=== PATIENT | female | born 1960 | race Two or more races ===

== ENCOUNTER 2021-05-25 17:28 | Inpatient (IN) | payer MEDICARE, OTHER ==
[~2021-05-25] VITALS: Ht 152.4 cm; Wt 71.7 kg
[2021-05-25 17:46] LABS: HEMATOCRIT 36.9 % (31.2-41.9); MEAN CORPUSCULAR HEMOGLOBIN 28.5 uug (24.7-32.8); MEAN CORPUSCULAR VOLUME 87.1 fL (75.5-95.3); PLATELET COUNT (AUTO) 222 K/uL (179-408)
[2021-05-25] MEDS ORDERED: MULT-594 PO (17:55)
[2021-05-25] MEDS ORDERED: NA P133E RC (17:55)
[2021-05-25] MEDS ORDERED: OXYC10TA49 PO (17:55)
[2021-05-25] MEDS ORDERED: FAMO20TA8 PO (17:55)
[2021-05-25] MEDS ORDERED: HYDR25TA4 PO (17:55)
[2021-05-25] MEDS ORDERED: DOCU250C14 PO (17:55)
[2021-05-25] MEDS ORDERED: METF-440 PO (17:55)
[2021-05-25] MEDS ORDERED: GABA-532 PO (17:55)
[2021-05-25] MEDS ORDERED: MAG355OR18 PO (17:55)
[2021-05-25] MEDS ORDERED: ATOR20TA PO (17:55)
[2021-05-25] MEDS ORDERED: BISA10SU61 RC (17:55)
[2021-05-25] MEDS ORDERED: QUET400T PO (17:55)
[2021-05-25] MEDS ORDERED: ACET-2154 PO ×2 (17:55)
[2021-05-25] MEDS ORDERED: MAGN400O6 PO (17:55)
[2021-05-25] MEDS ORDERED: OXYB5TAB16 PO (17:55)
[2021-05-25] MEDS ORDERED: POTA10CA43 PO (17:55)
[2021-05-25] MEDS ORDERED: LORA10TA7 PO (17:55)
[2021-05-25] MEDS ORDERED: QUET25TA PO (17:55)
[2021-05-25 17:56] LABS: CARBON DIOXIDE 25 mmol/L (21-32); CHLORIDE 98 mmol/L (98-107); CREATININE 0.6 mg/dL (0.6-1.3); GLUCOSE 105 mg/dL (74-106); POTASSIUM 3.3 mmol/L (3.5-5.1); UREA NITROGEN, BLOOD 10 mg/dL (7-18)
[2021-05-25 18:01] LABS: ETHANOL < 3 MG/DL (0-0)
--- NOTE | 2021-05-25 18:04 | NUR ---
Pt walked to the bathroom w/ steady gait. Urine collected and taken to LAB. Dinner tray provided.
[2021-05-25 18:09] LABS: ALANINE AMINOTRANSFERASE 29 U/L (14-59); ALKALINE PHOSPHATASE < 10 U/L (50-136); ASPARTATE AMINOTRANSFERASE 29 U/L (15-37); BILIRUBIN,DIRECT 0.1 mg/dL (0.0-0.2); BILIRUBIN,TOTAL 0.4 mg/dL (0.2-1.0); TOTAL PROTEIN, SERUM 6.8 g/dL (6.4-8.2)
[2021-05-25 18:09] LABS: *BILIRUBIN,URIN NEGATIVE (NEGATIVE); *CLARITY,URINE CLEAR (CLEAR); *COLOR,URINE LIGHT YELLOW (YELLOW); *KETONES,URINE 1+ (NEGATIVE); *UROBILINOGEN,URINE 0.2 E.U./dl (NORMAL); LEUKOCYTE ESTERASE ,URINE 2+ (NEGATIVE); NITRITE, URINE NEGATIVE (NEGATIVE); UGLUCOSE NEGATIVE (NEGATIVE)
[2021-05-25 18:12] LABS: *BLOOD, URINE TRACE INTACT (NEGATIVE)
[2021-05-25 18:14] LABS: ACETAMINOPHEN < 2.0 ug/mL (10-30)
[2021-05-25 18:16] LABS: *AMPHETAMINE, URINE NEGATIVE (NEGATIVE); *CANNABINOID, URINE NEGATIVE (NEGATIVE); *COCCAINE, URINE NEGATIVE (NEGATIVE); *OPIATE, URINE NEGATIVE (NEGATIVE); *PHENCYCLIDINE SCREEN,URINE NEGATIVE (NEGATIVE)
--- NOTE | 2021-05-25 18:16 | NUR ---
PT DAUGHTER, BONNY MUNOZ, CALLED AND REQUESTED TO BE ON CONTACT LIST: [phone] Addendum: 05/25/21 at 1820 by CESAR PT AGREED THE DAUGHTER TO BE ON THE CONTACT LIST.
--- NOTE | 2021-05-25 18:36 | NUR ---
Pt is medically cleared by Dr Liu.
--- NOTE | 2021-05-25 18:38 | NUR ---
Left message WINSOME, Neda Mijares, [employer] FACER. Awaiting call back.
--- NOTE | 2021-05-25 18:52 | NUR ---
Spoke to PET optometric technician, BALTA Red 1 hour.
--- NOTE | 2021-05-25 19:14 | NUR ---
Report recieved from ANITA Fairchild.
[2021-05-25] MEDS ORDERED: POTASSIUM CHLORIDE 20 MEQ TAB.PRT.SR PO ONE (19:30)
[2021-05-25] MEDS ORDERED: NITROFURANTOIN/NITROFURAN MAC 100 MG CAPSULE PO ONE ×2 (19:30→19:32)
[2021-05-25] MEDS ORDERED: POTASSIUM CHLORIDE 20 MEQ TAB.PRT.SR ONE (19:32)
--- NOTE | 2021-05-25 20:19 | NUR ---
Neda is at bedside to evaluate the pt.
--- NOTE | 2021-05-25 21:45 | NUR ---
Pt resting in bed, no changes in condition. Will continue to monitor.
[2021-05-25 22:47] LABS: BACTERIA,URINE FEW /HPF (NONE SEEN); RBC,URINE 0-3 /HPF (0-3); SQUAMOUS EPITHELIAL CELL,UR FEW /HPF (NONE SEEN)
--- NOTE | 2021-05-25 23:29 | NUR ---
Gave report to ANITA Lozoya.
[2021-05-25 23:35] VITALS: BP 116/79
[2021-05-26] MEDS ORDERED: BLOOD SUGAR DIAGNOSTIC 1 EACH STRIP VI ONE (00:15)
[2021-05-26] MEDS ORDERED: MAG HYDROX/AL HYDROX/SIMETH 30 ML LIQUID UDC PO PRN ×2 (00:15→16:15)
[2021-05-26] MEDS ORDERED: LORAZEPAM 1 MG TABLET PO PRN (00:15)
[2021-05-26] MEDS ORDERED: MAGNESIUM HYDROXIDE 30 ML LIQUID UDC PO PRN ×2 (00:15→16:15)
[2021-05-26 07:30] VITALS: BP 119/79
--- NOTE | 2021-05-26 07:58 | NUR ---
Patient is admitted on a 5150 for danger to self and grave disability. Per hold patient told clinician she attempted to OD however on admission she denied suicide ideation or attempt. Patient stated she was feeling sad and simply took extra pills to feel happy. Patient's behavior observed to be bizarre. Patient was paranoid and expressed persecution. Cooperative with admission interview. Dr. Morgan and Dr. Paz informed.
--- NOTE | 2021-05-26 10:27 | NUR ---
MAKENZIE Initial Discharge Plan: [place] [address] ([phone]). Patient's daughter, Lori Owens ([phone]) is involved in the patient's care. MAKENZIE will continue to work with patient, family, and MD to ensure a safe and proper discharge plan.
--- NOTE | 2021-05-26 10:36 | NUR ---
Firearms Report: [employer] completed and submitted a [employer] firearms report for 5150 grave disability certifications. A copy of report has been placed in patient chart.
--- NOTE | 2021-05-26 10:37 | NUR ---
Brief Substance Abuse Intervention: Patient was provided with a brief substance abuse intervention and referred to the following substance abuse programs: [facility] ([phone]); [facility] [address] [place] [address] ([phone]); [facility] [address] [facility] [address] ([phone]); [facility] ([phone]); [facility] ([phone]); [facility] ([phone]); [facility] ([phone]).
[2021-05-26] MEDS: QUETIAPINE FUMARATE 25 MG TABLET PO SCH ×3 (10:42→18:39)
[2021-05-26] MEDS: DIVALPROEX SPRINKLE 125 MG CAP.SPRINK PO SCH ×2 (10:43→21:14)
[2021-05-26] MEDS: risperiDONE-M 0.5 MG TAB.RAPDIS PO SCH ×2 (10:43→18:39)
--- NOTE | 2021-05-26 10:47 | NUR ---
SW SNF Contact: SW contacted [facility] [address] [place] [address] ([phone]) and spoke with health and safety coordinator Nayla who confirmed patient is welcome back.
--- NOTE | 2021-05-26 10:55 | NUR ---
MAKENZIE Family Contact: SW left a voicemail for patient's daughter, Lori Owens ([phone]) who is involved in the patient's care.
[2021-05-26] MEDS ORDERED: LORATADINE 10 MG TABLET PO PRN (16:15)
[2021-05-26] MEDS ORDERED: FLEET ENEMA 133 ML BOTTLE RC PRN (16:15)
[2021-05-26] MEDS ORDERED: BISACODYL 10 MG SUPP.RECT RC PRN (16:15)
[2021-05-26] MEDS ORDERED: ACETAMINOPHEN 325 MG TABLET PO PRN ×2 (16:15)
[2021-05-26 16:52] VITALS: BP 124/82
--- NOTE | 2021-05-26 18:30 | NUR ---
Pt is noted to be paranoid and delusional. Pt was found hiding in other patient's room. Pt stated "they are looking for me, Bharath and others." Pt is noted to be responded to internal stimuli. Pt was redirected to her room. Pt is able to follow directions at this time.
[2021-05-26] MEDS: GABAPENTIN 300 MG CAPSULE PO SCH ×2 (18:39→21:15)
[2021-05-26] MEDS: DOCUSATE SODIUM 100 MG CAPSULE PO SCH (18:39)
[2021-05-26] MEDS: METFORMIN HCL 500 MG TABLET PO SCH (18:39)
[2021-05-26 20:07] VITALS: BP 124/78
[2021-05-26] MEDS: OXYBUTYNIN CHLORIDE 5 MG TABLET PO SCH (21:14)
[2021-05-26] MEDS: ATORVASTATIN 20 MG TABLET PO SCH (21:15)
[2021-05-26] MEDS: QUETIAPINE FUMARATE 200 MG TABLET PO SCH (21:15)
[2021-05-27 07:26] LABS: BILIRUBIN,TOTAL 0.4 mg/dL (0.2-1.0); CREATININE 0.7 mg/dL (0.6-1.3); POTASSIUM 3.5 mmol/L (3.5-5.1); TOTAL PROTEIN, SERUM 6.5 g/dL (6.4-8.2)
[2021-05-27 07:39] VITALS: BP 124/70
[2021-05-27] MEDS: QUETIAPINE FUMARATE 25 MG TABLET PO SCH ×3 (08:33→16:20)
[2021-05-27] MEDS: DOCUSATE SODIUM 100 MG CAPSULE PO SCH ×2 (08:33→16:20)
[2021-05-27] MEDS: MULTIVITAMINS,THERAPEUTIC TABLET PO SCH (08:33)
[2021-05-27] MEDS: FAMOTIDINE 20 MG TABLET PO SCH (08:33)
[2021-05-27] MEDS: DIVALPROEX SPRINKLE 125 MG CAP.SPRINK PO SCH ×2 (08:33→20:01)
[2021-05-27] MEDS: HYDROCHLOROTHIAZIDE 25 MG TABLET PO SCH (08:33)
[2021-05-27] MEDS: GABAPENTIN 300 MG CAPSULE PO SCH ×4 (08:33→20:01)
[2021-05-27] MEDS: risperiDONE-M 0.5 MG TAB.RAPDIS PO SCH ×2 (08:33→16:20)
[2021-05-27] MEDS: METFORMIN HCL 500 MG TABLET PO SCH ×2 (08:33→17:15)
[2021-05-27] MEDS: OXYBUTYNIN CHLORIDE 5 MG TABLET PO SCH ×2 (08:33→20:01)
[2021-05-27 16:00] VITALS: BP 105/75
[2021-05-27 19:50] VITALS: BP 107/51
[2021-05-27] MEDS: ATORVASTATIN 20 MG TABLET PO SCH (20:01)
[2021-05-27] MEDS: QUETIAPINE FUMARATE 200 MG TABLET PO SCH (20:01)
[2021-05-28 08:12] VITALS: BP 98/71
[2021-05-28] MEDS: DIVALPROEX SPRINKLE 125 MG CAP.SPRINK PO SCH ×2 (08:23→20:41)
[2021-05-28] MEDS: METFORMIN HCL 500 MG TABLET PO SCH ×2 (08:23→17:13)
[2021-05-28] MEDS: DOCUSATE SODIUM 100 MG CAPSULE PO SCH ×2 (08:23→17:13)
[2021-05-28] MEDS: risperiDONE-M 0.5 MG TAB.RAPDIS PO SCH ×2 (08:24→17:13)
[2021-05-28] MEDS: OXYBUTYNIN CHLORIDE 5 MG TABLET PO SCH ×2 (08:24→20:41)
[2021-05-28] MEDS: QUETIAPINE FUMARATE 25 MG TABLET PO SCH ×3 (08:24→17:13)
[2021-05-28] MEDS: MULTIVITAMINS,THERAPEUTIC TABLET PO SCH (08:24)
[2021-05-28] MEDS: FAMOTIDINE 20 MG TABLET PO SCH (08:24)
[2021-05-28] MEDS: GABAPENTIN 300 MG CAPSULE PO SCH ×4 (08:24→20:41)
[2021-05-28] MEDS: HYDROCHLOROTHIAZIDE 25 MG TABLET PO SCH (08:25)
--- NOTE | 2021-05-28 12:57 | NUR ---
Pt.was seen by LYUDMILA PINEDA MD
--- NOTE | 2021-05-28 15:45 | NUR ---
Gps/Erp Consultant- 14 day hold was Faxed [facility] (05/28/21)
[2021-05-28 16:39] VITALS: BP 108/56
--- NOTE | 2021-05-28 17:48 | NUR ---
PT.SEEMS TO BE UPSET,THAT CAN'T GO HOME TODAY,ASK FOR COPY OF HER 14D HOLD,PROVIDED.
[2021-05-28 19:50] VITALS: BP 112/62
[2021-05-28] MEDS: ATORVASTATIN 20 MG TABLET PO SCH (20:41)
[2021-05-28] MEDS: QUETIAPINE FUMARATE 200 MG TABLET PO SCH (20:41)
[2021-05-28] MEDS: ACETAMINOPHEN 325 MG TABLET PO PRN (22:04)
[2021-05-28] MEDS: TEMAZEPAM 7.5 MG CAPSULE PO PRN (22:05)
--- NOTE | 2021-05-29 07:00 | NUR ---
SHE SLEPT FOR 6.0 HRS,AND TOOK A SHOWER THIS MORNING.QUIET NIGHT WITH NO C/O MADE.NO OTHER BEHAVIORAL ISSUES.WILL CONTINUE TO MONITOR.
[2021-05-29 07:30] VITALS: BP 100/64
[2021-05-29] MEDS: DOCUSATE SODIUM 100 MG CAPSULE PO SCH ×2 (08:27→17:02)
[2021-05-29] MEDS: FAMOTIDINE 20 MG TABLET PO SCH (08:27)
[2021-05-29] MEDS: DIVALPROEX SPRINKLE 125 MG CAP.SPRINK PO SCH ×2 (08:27→21:11)
[2021-05-29] MEDS: HYDROCHLOROTHIAZIDE 25 MG TABLET PO SCH (08:29)
[2021-05-29] MEDS: GABAPENTIN 300 MG CAPSULE PO SCH ×4 (08:29→21:11)
[2021-05-29] MEDS: OXYBUTYNIN CHLORIDE 5 MG TABLET PO SCH ×2 (08:30→21:11)
[2021-05-29] MEDS: METFORMIN HCL 500 MG TABLET PO SCH ×2 (08:32→17:03)
[2021-05-29] MEDS: QUETIAPINE FUMARATE 25 MG TABLET PO SCH ×3 (08:32→17:03)
[2021-05-29] MEDS: MULTIVITAMINS,THERAPEUTIC TABLET PO SCH (08:32)
[2021-05-29] MEDS: risperiDONE-M 0.5 MG TAB.RAPDIS PO SCH ×2 (08:32→17:03)
[2021-05-29 15:19] VITALS: BP 111/68
[2021-05-29 19:58] VITALS: BP 112/64
[2021-05-29] MEDS: QUETIAPINE FUMARATE 200 MG TABLET PO SCH (21:12)
[2021-05-29] MEDS: ATORVASTATIN 20 MG TABLET PO SCH (21:38)
[2021-05-30] MEDS: ACETAMINOPHEN 325 MG TABLET PO PRN (00:30)
[2021-05-30] MEDS: TEMAZEPAM 7.5 MG CAPSULE PO PRN (00:30)
[2021-05-30 07:30] VITALS: BP 110/70
[2021-05-30] MEDS: risperiDONE-M 0.5 MG TAB.RAPDIS PO SCH ×2 (08:16→16:59)
[2021-05-30] MEDS: FAMOTIDINE 20 MG TABLET PO SCH (08:16)
[2021-05-30] MEDS: QUETIAPINE FUMARATE 25 MG TABLET PO SCH ×3 (08:16→16:59)
[2021-05-30] MEDS: MULTIVITAMINS,THERAPEUTIC TABLET PO SCH (08:16)
[2021-05-30] MEDS: METFORMIN HCL 500 MG TABLET PO SCH ×2 (08:16→16:59)
[2021-05-30] MEDS: DOCUSATE SODIUM 100 MG CAPSULE PO SCH ×2 (08:16→16:59)
[2021-05-30] MEDS: OXYBUTYNIN CHLORIDE 5 MG TABLET PO SCH ×2 (08:16→20:46)
[2021-05-30] MEDS: GABAPENTIN 300 MG CAPSULE PO SCH ×4 (08:16→20:44)
[2021-05-30] MEDS: HYDROCHLOROTHIAZIDE 25 MG TABLET PO SCH (08:18)
[2021-05-30] MEDS: DIVALPROEX SPRINKLE 125 MG CAP.SPRINK PO SCH ×2 (08:18→20:44)
[2021-05-30 15:25] VITALS: BP 99/69
[2021-05-30 20:11] VITALS: BP 141/54
[2021-05-30] MEDS: ATORVASTATIN 20 MG TABLET PO SCH (20:44)
[2021-05-30] MEDS: QUETIAPINE FUMARATE 200 MG TABLET PO SCH (20:45)
--- NOTE | 2021-05-30 23:08 | NUR ---
PATIENT RECEIVED IN BED AWAKE, ALERT/ORIENTED X3. PATIENT COMPLIANT WITH MEDS AND ABLE TO FOLLOW DIRECTION.PATIENT DENIES. NO ACUTE DISTRESS.POOR INSIGHT AND IMPAIRED JUDGEMENT.PATIENT JAELYN SI,OR ANY PLAN OF INTENT. SAFE ENVIRONMENT PROVIDED, BED IN LOW POSITION,BED LOCKED, AND BED ALARM ON WHEN IN BED.
[2021-05-31 07:30] VITALS: BP_SYST 111; BP_SYST 93; BP_DIAS 58; BP_DIAS 78
[2021-05-31] MEDS: QUETIAPINE FUMARATE 25 MG TABLET PO SCH ×3 (08:14→16:48)
[2021-05-31] MEDS: risperiDONE-M 0.5 MG TAB.RAPDIS PO SCH ×2 (08:14→16:48)
[2021-05-31] MEDS: DIVALPROEX SPRINKLE 125 MG CAP.SPRINK PO SCH ×2 (08:14→20:04)
[2021-05-31] MEDS: DOCUSATE SODIUM 100 MG CAPSULE PO SCH ×2 (08:14→16:48)
[2021-05-31] MEDS: FAMOTIDINE 20 MG TABLET PO SCH (08:14)
[2021-05-31] MEDS: METFORMIN HCL 500 MG TABLET PO SCH ×2 (08:14→16:48)
[2021-05-31] MEDS: GABAPENTIN 300 MG CAPSULE PO SCH ×4 (08:14→20:04)
[2021-05-31] MEDS: MULTIVITAMINS,THERAPEUTIC TABLET PO SCH (08:15)
[2021-05-31 08:22] LABS: HEMATOCRIT 38.7 % (31.2-41.9); MEAN CORPUSCULAR HEMOGLOBIN 28.8 uug (24.7-32.8); MEAN CORPUSCULAR VOLUME 87.5 fL (75.5-95.3); PLATELET COUNT (AUTO) 223 K/uL (179-408)
[2021-05-31] MEDS: HYDROCHLOROTHIAZIDE 25 MG TABLET PO SCH (08:23)
[2021-05-31 08:38] LABS: BILIRUBIN,TOTAL 0.3 mg/dL (0.2-1.0); CREATININE 0.7 mg/dL (0.6-1.3); POTASSIUM 3.1 mmol/L (3.5-5.1); TOTAL PROTEIN, SERUM 6.9 g/dL (6.4-8.2)
[2021-05-31] MEDS: OXYBUTYNIN CHLORIDE 5 MG TABLET PO SCH ×2 (09:00→20:04)
[2021-05-31] MEDS ORDERED: POTASSIUM CHLORIDE 20 MEQ POWDER PACKET PO ONE (10:30)
--- NOTE | 2021-05-31 10:36 | NUR ---
SNF Contact: This SW faxed clinicals to [facility] (F:[phone]) and spoke with Hafsa who stated pt is welcomed back on Saturday.
--- NOTE | 2021-05-31 11:56 | NUR ---
Court Hearing: Patient's [address] hearing was today and it was upheld for GD and danger to self.
--- NOTE | 2021-05-31 11:57 | NUR ---
SW Family Contact: This SW contacted patient's daughter Lori ([phone]) and left a detailed voicemail that pt will be discharged Saturday back to [facility] ([place], [place]).
[2021-05-31] MEDS: ACETAMINOPHEN 325 MG TABLET PO PRN (12:37)
[2021-05-31 16:00] VITALS: BP 93/58
[2021-05-31] MEDS: QUETIAPINE FUMARATE 200 MG TABLET PO SCH (20:04)
[2021-05-31] MEDS: ATORVASTATIN 20 MG TABLET PO SCH (20:04)
[2021-05-31 20:14] VITALS: BP 127/61
[2021-06-01 07:30] VITALS: BP 103/65
[2021-06-01] MEDS: FAMOTIDINE 20 MG TABLET PO SCH (08:33)
[2021-06-01] MEDS: GABAPENTIN 300 MG CAPSULE PO SCH ×4 (08:33→20:40)
[2021-06-01] MEDS: risperiDONE-M 0.5 MG TAB.RAPDIS PO SCH ×2 (08:33→16:42)
[2021-06-01] MEDS: MULTIVITAMINS,THERAPEUTIC TABLET PO SCH (08:33)
[2021-06-01] MEDS: QUETIAPINE FUMARATE 25 MG TABLET PO SCH ×3 (08:33→16:42)
[2021-06-01] MEDS: METFORMIN HCL 500 MG TABLET PO SCH ×2 (08:33→16:43)
[2021-06-01] MEDS: OXYBUTYNIN CHLORIDE 5 MG TABLET PO SCH ×2 (08:34→20:45)
[2021-06-01] MEDS: DIVALPROEX SPRINKLE 125 MG CAP.SPRINK PO SCH ×2 (08:34→20:40)
[2021-06-01] MEDS: HYDROCHLOROTHIAZIDE 25 MG TABLET PO SCH (08:35)
[2021-06-01] MEDS: DOCUSATE SODIUM 100 MG CAPSULE PO SCH ×2 (08:35→16:42)
[2021-06-01 15:54] VITALS: BP 106/61
[2021-06-01 20:00] VITALS: BP 115/76
[2021-06-01] MEDS: ATORVASTATIN 20 MG TABLET PO SCH (20:40)
[2021-06-01] MEDS: QUETIAPINE FUMARATE 200 MG TABLET PO SCH (20:40)
[2021-06-02 07:30] VITALS: BP 120/77
[2021-06-02] MEDS: METFORMIN HCL 500 MG TABLET PO SCH ×2 (08:35→17:15)
[2021-06-02] MEDS: DIVALPROEX SPRINKLE 125 MG CAP.SPRINK PO SCH ×2 (08:35→20:01)
[2021-06-02] MEDS: QUETIAPINE FUMARATE 25 MG TABLET PO SCH ×3 (08:36→17:15)
[2021-06-02] MEDS: GABAPENTIN 300 MG CAPSULE PO SCH ×4 (08:36→20:01)
[2021-06-02] MEDS: FAMOTIDINE 20 MG TABLET PO SCH (08:36)
[2021-06-02] MEDS: OXYBUTYNIN CHLORIDE 5 MG TABLET PO SCH ×2 (08:37→20:01)
[2021-06-02] MEDS: DOCUSATE SODIUM 100 MG CAPSULE PO SCH ×2 (08:37→17:15)
[2021-06-02] MEDS: risperiDONE-M 0.5 MG TAB.RAPDIS PO SCH ×2 (08:38→17:15)
[2021-06-02] MEDS: HYDROCHLOROTHIAZIDE 25 MG TABLET PO SCH (08:38)
[2021-06-02] MEDS: MULTIVITAMINS,THERAPEUTIC TABLET PO SCH (08:38)
[2021-06-02 16:00] VITALS: BP 126/69
[2021-06-02 19:58] VITALS: BP 118/76
[2021-06-02] MEDS: QUETIAPINE FUMARATE 200 MG TABLET PO SCH (20:01)
[2021-06-02] MEDS: ATORVASTATIN 20 MG TABLET PO SCH (20:01)
--- NOTE | 2021-06-03 06:33 | NUR ---
GPS: REMAIN CALM AND COOPERATIVE WITH MEDS AND CARE. SLEPT FOR 8.15 HRS, QUIET NIGHT WITH NO C/O MADE. NO OTHER BEHAVIORAL ISSUES.RESTING IN BED COMFORTABLY. WILL CONTINUE TO MONITOR.
[2021-06-03 07:46] VITALS: BP 98/57
[2021-06-03] MEDS: GABAPENTIN 300 MG CAPSULE PO SCH ×4 (08:15→20:02)
[2021-06-03] MEDS: FAMOTIDINE 20 MG TABLET PO SCH (08:15)
[2021-06-03] MEDS: QUETIAPINE FUMARATE 25 MG TABLET PO SCH ×3 (08:15→16:42)
[2021-06-03] MEDS: MULTIVITAMINS,THERAPEUTIC TABLET PO SCH (08:15)
[2021-06-03] MEDS: risperiDONE-M 0.5 MG TAB.RAPDIS PO SCH ×2 (08:15→16:42)
[2021-06-03] MEDS: METFORMIN HCL 500 MG TABLET PO SCH ×2 (08:15→17:13)
[2021-06-03] MEDS: DOCUSATE SODIUM 100 MG CAPSULE PO SCH ×2 (08:16→16:42)
[2021-06-03] MEDS: OXYBUTYNIN CHLORIDE 5 MG TABLET PO SCH ×2 (08:16→20:03)
[2021-06-03] MEDS: DIVALPROEX SPRINKLE 125 MG CAP.SPRINK PO SCH ×2 (08:16→20:03)
[2021-06-03] MEDS: HYDROCHLOROTHIAZIDE 25 MG TABLET PO SCH (08:17)
[2021-06-03 16:56] VITALS: BP 104/53
[2021-06-03 19:53] VITALS: BP 106/56
[2021-06-03] MEDS: ATORVASTATIN 20 MG TABLET PO SCH (20:03)
[2021-06-03] MEDS: QUETIAPINE FUMARATE 200 MG TABLET PO SCH (20:04)
[2021-06-04 08:12] VITALS: BP 101/66
[2021-06-04] MEDS: risperiDONE-M 0.5 MG TAB.RAPDIS PO SCH ×2 (08:31→16:37)
[2021-06-04] MEDS: QUETIAPINE FUMARATE 25 MG TABLET PO SCH ×3 (08:31→16:37)
[2021-06-04] MEDS: DIVALPROEX SPRINKLE 125 MG CAP.SPRINK PO SCH ×2 (08:32→20:21)
[2021-06-04] MEDS: GABAPENTIN 300 MG CAPSULE PO SCH ×4 (08:32→20:21)
[2021-06-04] MEDS: OXYBUTYNIN CHLORIDE 5 MG TABLET PO SCH ×2 (08:32→20:20)
[2021-06-04] MEDS: MULTIVITAMINS,THERAPEUTIC TABLET PO SCH (08:32)
[2021-06-04] MEDS: METFORMIN HCL 500 MG TABLET PO SCH ×2 (08:32→17:36)
[2021-06-04] MEDS: FAMOTIDINE 20 MG TABLET PO SCH (08:32)
[2021-06-04] MEDS: DOCUSATE SODIUM 100 MG CAPSULE PO SCH ×2 (08:32→16:37)
[2021-06-04] MEDS: GLUCERNA SHAKE VANILLA 237 ML CAN PO SCH (08:33)
[2021-06-04] MEDS: HYDROCHLOROTHIAZIDE 25 MG TABLET PO SCH (08:33)
[2021-06-04 16:16] VITALS: BP 122/79
[2021-06-04 19:46] VITALS: BP 116/64
[2021-06-04] MEDS: QUETIAPINE FUMARATE 200 MG TABLET PO SCH (20:21)
[2021-06-04] MEDS: ATORVASTATIN 20 MG TABLET PO SCH (20:22)
[2021-06-05 07:30] VITALS: BP 90/51
--- NOTE | 2021-06-05 08:09 | NUR ---
SW Discharge Note: [place] [address] ([phone]). Patient will be provided ambulance transportation today at 1PM. Patients daughter Lori Owens ([phone]) is aware and agreeable with discharge plan. Patient is alert and oriented x4 and is aware and agreeable with discharge plan. Patient denies suicidal or homicidal ideation. Patient presents with euthymic mood and congruent affect. Patient will be following up with her psychiatrist Dr. Morgan and pants presser automatic Dr. Jones at [address] [address] ([phone]). Patient was provided with resources to [facility] ([phone]), [facility] ([phone]), and [facility] ([phone]) for substance abuse.
[2021-06-05] MEDS: MULTIVITAMINS,THERAPEUTIC TABLET PO SCH (08:41)
[2021-06-05] MEDS: DOCUSATE SODIUM 100 MG CAPSULE PO SCH (08:41)
[2021-06-05] MEDS: GABAPENTIN 300 MG CAPSULE PO SCH ×2 (08:41→13:16)
[2021-06-05] MEDS: DIVALPROEX SPRINKLE 125 MG CAP.SPRINK PO SCH (08:41)
[2021-06-05] MEDS: FAMOTIDINE 20 MG TABLET PO SCH (08:41)
[2021-06-05] MEDS: QUETIAPINE FUMARATE 25 MG TABLET PO SCH ×2 (08:41→13:16)
[2021-06-05] MEDS: OXYBUTYNIN CHLORIDE 5 MG TABLET PO SCH (08:41)
[2021-06-05] MEDS: METFORMIN HCL 500 MG TABLET PO SCH (08:41)
[2021-06-05] MEDS: risperiDONE-M 0.5 MG TAB.RAPDIS PO SCH (08:41)
[2021-06-05 08:42] VITALS: BP 90/51
[2021-06-05] MEDS: HYDROCHLOROTHIAZIDE 25 MG TABLET PO SCH (08:42)
[2021-06-05] MEDS: GLUCERNA SHAKE VANILLA 237 ML CAN PO SCH (08:42)
--- NOTE | 2021-06-05 14:30 | NUR ---
GPS: Nursing Notes: Discharge Notes: Patient is awake and responding to her name, compliant with her medications, cooperative with nursing care, following staff directions, denies SI/HI, denies AH/VH, denies pain or discomfort, denies SOB, discharge to [facility] [place] [address] . Patient's daughter - Lori Owens was inform of her discharge, report given to facility's nurse - Shannon, ANITA pig machine supervisor, took all her valuables with her, transported to facility via ambulance. Patient will be following up with her psychiatrist Dr. Morgan and cut off man Dr. Jones at [address] [address] ([phone]). Patient was provided with resources to [facility] ([phone]), [facility] ([phone]), and [facility] ([phone]) for substance abuse.
== END 2021-06-05 14:30 | DRG 885 ==
LOC: ER 17:32 → GPS 23:16
PROVIDERS: ADMIT Psychiatry & Neurology Psychosomatic Medicine; ATTEND Nurse Practitioner Acute Care
DX: F25.0 Schizoaffective disorder, bipolar type (principal); E78.5 Hyperlipidemia, unspecified; F03.90 Unspecified dementia, unspecified severity, without behavioral disturbance, psychotic disturbance, mood disturbance, and anxiety; E11.9 Type 2 diabetes mellitus without complications; J45.909 Unspecified asthma, uncomplicated; N32.81 Overactive bladder; F41.9 Anxiety disorder, unspecified; Z91.5 Personal history of self-harm; I10 Essential (primary) hypertension; E03.9 Hypothyroidism, unspecified; Z20.822 Contact with and (suspected) exposure to COVID-19; M19.90 Unspecified osteoarthritis, unspecified site; Z79.899 Other long term (current) drug therapy; K21.9 Gastro-esophageal reflux disease without esophagitis; Z79.84 Long term (current) use of oral hypoglycemic drugs
CPT/HCPCS: 36415; 80164; 85025; 87086; A4663; G0480